=== PATIENT | male | born 1960 | race Caucasian/White ===

== ENCOUNTER 2022-01-29 12:57 | Outpatient (CLI) | payer OTHER, SELFPAY | END 2022-01-29 12:58 | disposition home or self-care (01) | LOC: OP CLINIC 12:58 | PROVIDERS: PCP Surgery; Visit Provider Internal Medicine Gastroenterology | DX: Z12.11 Encounter for screening for malignant neoplasm of colon (principal); K63.5 Polyp of colon; K57.30 Diverticulosis of large intestine without perforation or abscess without bleeding; Z86.010 Personal history of colon polyps | CPT/HCPCS: 45380; 45385; 88305; J2250; J3010 ==